=== PATIENT | female | born 1930 | race African-American/Black ===

== ENCOUNTER 2016-04-14 20:11 | Inpatient (IN) | payer MEDICARE, BC ==
[~2016-04-14 20:11] MED LIST: ACET-2247 PO; BENA20 PO; HYDR25TA PO; LEVO100 PO; METO-325 PO
[2016-04-14 20:35] VITALS: BP 149/88
[2016-04-14] MEDS ORDERED: INFLUENZA VIRUS VACCINE QVS 2016-17 (3YR+)/PF 60 MCG/0.5 ML SYRINGE IM ONE (21:15)
[2016-04-14] MEDS ORDERED: PNEUMOCOCCAL VACCINE POLYVALENT 0.5 ML VIAL [PPSV23] IM ONE (21:15)
[2016-04-14] MEDS ORDERED: MAGNESIUM HYDROXIDE SUSPENSION 30 ML UDCUP PO PRN (21:30)
[2016-04-14] MEDS ORDERED: IPRATROPIUM BROMIDE 0.5 MG/2.5 ML NEB SOLUTION NEB PRN (21:30)
[2016-04-14] MEDS ORDERED: ACETAMINOPHEN 325 MG TABLET PO PRN (21:30)
[2016-04-14] MEDS ORDERED: ONDANSETRON HCL 4 MG/2 ML VIAL IVP PRN (21:30)
[2016-04-14] MEDS ORDERED: ZOLPIDEM TARTRATE 5 MG TABLET PO PRN (21:30)
[2016-04-14] MEDS ORDERED: ALBUTEROL SULFATE 2.5 MG/0.5 ML NEB SOLUTION NEB PRN (21:30)
[2016-04-14] MEDS ORDERED: 0.9% SODIUM CHLORIDE 10 ML SYRINGE IVP PRN (23:15)
[2016-04-15] VITALS (7 sets, daily range): BP systolic 139–150; BP diastolic 77–89
[2016-04-15 05:55] LABS: APPEARANCE,URINE CLEAR (CLEAR); GLUCOSE, URINE (UA) NEGATIVE (NEGATIVE); KETONES,URINE NEGATIVE (NEGATIVE); OCCULT BLOOD,URINE SMALL (NEGATIVE); PH,URINE 7.5 (5.0-8.0); PROTEIN,URINE NEGATIVE (NEGATIVE)
[2016-04-15 05:56] LABS: ADD UA MICROSCOPIC YES; LEUKOCYTE ESTERASE ,URINE SMALL (NEGATIVE)
[2016-04-15 05:58] LABS: SQUAMOUS EPITHELIAL CELL,UR Moderate /LPF (None Seen)
[2016-04-15] MEDS: LEVOTHYROXINE SODIUM 100 MCG TABLET PO SCH (06:04)
[2016-04-15 07:38] LABS: BASOPHILS # (AUTO) 0.02 K/uL (0.00-0.20); BASOPHILS % (AUTO) 0.6 % (0.0-2.0); EOSINOPHILS # (AUTO) 0.06 K/uL (0.00-0.70); EOSINOPHILS % (AUTO) 1.44 % (1.0-6.0); HEMATOCRIT 32.7 % (36-46); HEMOGLOBIN 11.2 g/dL (12.0-16.0); LYMPHOCYTES # (AUTO) 0.8 K/uL (1.0-4.8); LYMPHOCYTES % (AUTO) 20.4 % (22.0-44.0); MEAN CORPUSCULAR HEMOGLOBIN 31.9 pg (26.0-34.0); MEAN CORPUSCULAR HGB CONC 34.3 G/dL (31.0-37.0); MEAN CORPUSCULAR VOLUME 93 fL (80-100); MONOCYTES # (AUTO) 0.3 K/uL (0.1-1.0); MONOCYTES % (AUTO) 7.9 % (2.0-9.0); NEUTROPHILS # (AUTO) 2.8 K/uL (1.8-7.7); NEUTROPHILS % (AUTO) 69.7 % (40.0-70.0); PLATELET COUNT (AUTO) 197 K/uL (150-450); RED BLOOD CELL COUNT(AUTO) 3.52 MIL/uL (4.00-5.20); RED CELL DISTRIBUTION WIDTH 13.5 % (11.5-14.5)
[2016-04-15 07:48] LABS: INR 1.1 (0.9-1.1); PROTHROMBIN TIME 11.4 SEC (9.4-11.6)
[2016-04-15 08:36] LABS: HEMOGLOBIN A1C 5.2 % (4.5-6.2)
[2016-04-15 08:58] LABS: ALANINE AMINOTRANSFERASE 12 U/L (12-78); ALBUMIN 3.1 g/dL (3.4-5.0); ANION GAP 7 mmol/L (8-16); ASPARTATE AMINOTRANSFERASE 16 U/L (15-37); BILIRUBIN,TOTAL 1.3 mg/dL (0.1-1.0); CALCIUM, TOTAL 8.2 mg/dL (8.8-10.5); CARBON DIOXIDE 33 mmol/L (22-29); CHLORIDE 98 mmol/L (98-107); CHOL/HDL RATIO 1.7 (3.9-5.7); CREATINE KINASE MB 1.1 ng/mL (0-5); CREATINE KINASE, TOTAL 114 U/L (26-192); CREATININE 0.53 mg/dL (0.60-1.30); GLOMERULAR FILTR. RATE CALC > 60 mL/min (>60); POTASSIUM 3.7 mmol/L (3.5-5.1); SODIUM SERUM 138 mmol/L (136-145); THYROID STIMULATING HORMONE 3.15 uIU/mL (0.36-3.74); UREA NITROGEN, BLOOD 7 mg/dL (7-18)
[2016-04-15 09:15] LABS: ERYTHROCYTE SEDIMENTATION RATE 22 MM/HR (0-20)
[2016-04-15 09:19] LABS: URIC ACID 3.3 mg/dL (2.6-7.2)
[2016-04-15] MEDS: METOPROLOL SUCCINATE 50 MG ER TABLET PO SCH (09:57)
[2016-04-15] MEDS: PANTOPRAZOLE SODIUM 40 MG DR TABLET PO SCH (09:57)
[2016-04-15] MEDS: HEPARIN SODIUM,PORCINE 5,000 UNITS/ML VIAL SQ SCH ×2 (09:58→21:16)
[2016-04-15] MEDS ORDERED: SODIUM CHLORIDE 0.9% 250 ML IV ONE (12:32)
[2016-04-15] MEDS: CefTRIAXone 1 GM/DEXTROSE 50 ML IV SCH (12:42)
[2016-04-16 05:41] VITALS: BP 131/83
[2016-04-16] MEDS: LEVOTHYROXINE SODIUM 100 MCG TABLET PO SCH (06:18)
[2016-04-16 07:22] LABS: BASOPHILS % (AUTO) 0.7 % (0.0-2.0); EOSINOPHILS % (AUTO) 0.9 % (1.0-6.0); HEMOGLOBIN 10.3 g/dL (12.0-16.0); LYMPHOCYTES # (AUTO) 0.8 K/uL (1.0-4.8); LYMPHOCYTES % (AUTO) 26.2 % (22.0-44.0); MEAN CORPUSCULAR HEMOGLOBIN 31.2 pg (26.0-34.0); MEAN CORPUSCULAR HGB CONC 33.2 G/dL (31.0-37.0); MEAN CORPUSCULAR VOLUME 94 fL (80-100); MONOCYTES # (AUTO) 0.4 K/uL (0.1-1.0); MONOCYTES % (AUTO) 11.2 % (2.0-9.0); NEUTROPHILS # (AUTO) 1.9 K/uL (1.8-7.7); PLATELET COUNT (AUTO) 198 K/uL (150-450); RED BLOOD CELL COUNT(AUTO) 3.29 MIL/uL (4.00-5.20); RED CELL DISTRIBUTION WIDTH 13.8 % (11.5-14.5); WHITE BLOOD COUNT (AUTO) 3.2 K/uL (4.5-11.0)
[2016-04-16 07:33] VITALS: BP 145/89
[2016-04-16 07:34] LABS: ANION GAP 3 mmol/L (8-16); CALCIUM, TOTAL 8.1 mg/dL (8.8-10.5); CARBON DIOXIDE 33 mmol/L (22-29); CHLORIDE 100 mmol/L (98-107); CREATININE 0.61 mg/dL (0.60-1.30); GLOMERULAR FILTR. RATE CALC > 60 mL/min (>60); SODIUM SERUM 136 mmol/L (136-145); UREA NITROGEN, BLOOD 6 mg/dL (7-18)
[2016-04-16] MEDS: PANTOPRAZOLE SODIUM 40 MG DR TABLET PO SCH (08:27)
[2016-04-16] MEDS: FOLIC ACID 1 MG TABLET PO SCH (08:27)
[2016-04-16] MEDS: METOPROLOL SUCCINATE 50 MG ER TABLET PO SCH (08:27)
[2016-04-16] MEDS: HEPARIN SODIUM,PORCINE 5,000 UNITS/ML VIAL SQ SCH ×2 (08:28→20:50)
[2016-04-16] MEDS: CefTRIAXone 1 GM/DEXTROSE 50 ML IV SCH (10:26)
[2016-04-16] MEDS ORDERED: CYANOCOBALAMIN 1,000 MCG/ML VIAL IM ONE (11:15)
[2016-04-16 11:28] VITALS: BP 145/72
[2016-04-16] MEDS ORDERED: CloNIDine HCL 0.1 MG TABLET PO PRN (11:30)
[2016-04-16] MEDS ORDERED: POTASSIUM CHLORIDE 20 MEQ ER TABLET PO PRN ×2 (11:30)
[2016-04-16] MEDS ORDERED: POTASSIUM CHL 10 MEQ/WATER 50 ML IV PRN (11:30)
[2016-04-16 15:04] LABS: HEPATITIS Bs ANTIGEN SCREEN P Negative (Negative); HEPATITIS C AB SCREEN <0.1 s/co ratio (0.0-0.9)
[2016-04-16 16:10] VITALS: BP 145/78
[2016-04-16 19:18] VITALS: BP 121/70
[2016-04-16] MEDS ORDERED: MIRTAZAPINE 15 MG TABLET PO SCH (21:00)
[2016-04-16 23:20] VITALS: BP 131/82
[2016-04-17 04:27] VITALS: BP 139/92
[2016-04-17] MEDS: LEVOTHYROXINE SODIUM 100 MCG TABLET PO SCH (05:41)
[2016-04-17 07:20] VITALS: BP 143/83
[2016-04-17] MEDS: FOLIC ACID 1 MG TABLET PO SCH (08:37)
[2016-04-17] MEDS: PANTOPRAZOLE SODIUM 40 MG DR TABLET PO SCH (08:38)
[2016-04-17] MEDS: HEPARIN SODIUM,PORCINE 5,000 UNITS/ML VIAL SQ SCH (08:38)
[2016-04-17] MEDS ORDERED: METOPROLOL SUCCINATE 50 MG ER TABLET PO SCH (09:00)
[2016-04-17] MEDS ORDERED: CYANOCOBALAMIN 500 MCG TABLET PO SCH (09:00)
[2016-04-17 09:57] LABS: BASOPHILS % (AUTO) 0.6 % (0.0-2.0); EOSINOPHILS % (AUTO) 0.4 % (1.0-6.0); HEMATOCRIT 32.5 % (36-46); HEMOGLOBIN 10.6 g/dL (12.0-16.0); LYMPHOCYTES # (AUTO) 0.8 K/uL (1.0-4.8); LYMPHOCYTES % (AUTO) 21.3 % (22.0-44.0); MEAN CORPUSCULAR HEMOGLOBIN 30.8 pg (26.0-34.0); MEAN CORPUSCULAR HGB CONC 32.6 G/dL (31.0-37.0); MEAN CORPUSCULAR VOLUME 95 fL (80-100); MONOCYTES # (AUTO) 0.3 K/uL (0.1-1.0); MONOCYTES % (AUTO) 7.6 % (2.0-9.0); NEUTROPHILS # (AUTO) 2.6 K/uL (1.8-7.7); NEUTROPHILS % (AUTO) 70.1 % (40.0-70.0); PLATELET COUNT (AUTO) 220 K/uL (150-450); RED BLOOD CELL COUNT(AUTO) 3.43 MIL/uL (4.00-5.20); RED CELL DISTRIBUTION WIDTH 13.5 % (11.5-14.5); WHITE BLOOD COUNT (AUTO) 3.7 K/uL (4.5-11.0)
[2016-04-17 10:27] LABS: ANION GAP 7 mmol/L (8-16); CALCIUM, TOTAL 8.1 mg/dL (8.8-10.5); CARBON DIOXIDE 31 mmol/L (22-29); CHLORIDE 100 mmol/L (98-107); CREATININE 0.67 mg/dL (0.60-1.30); GLOMERULAR FILTR. RATE CALC > 60 mL/min (>60); POTASSIUM 3.2 mmol/L (3.5-5.1); SODIUM SERUM 138 mmol/L (136-145); UREA NITROGEN, BLOOD 8 mg/dL (7-18)
[2016-04-17] MEDS: CefTRIAXone 1 GM/DEXTROSE 50 ML IV SCH (10:45)
[2016-04-17 11:16] VITALS: BP 140/79
[2016-04-17] MEDS ORDERED: LEVO500 PO (11:41)
[2016-04-17] MEDS ORDERED: MIRT15 PO (11:42)
[2016-04-17] MEDS ORDERED: FOLI1 PO (11:44)
[2016-04-17] MEDS ORDERED: CYAN500 PO (11:44)
== END 2016-04-17 12:05 | disposition home health service (06) | DRG 565 ==
LOC: 6N 20:25
PROVIDERS: ADMIT Internal Medicine Geriatric Medicine; ATTEND Internal Medicine Geriatric Medicine
PROC: 0S9D3ZZ Drainage of Left Knee Joint, Percutaneous Approach (ICD-10-PCS; principal; 2016-04-16)
DX: M25.462 Effusion, left knee (principal); N39.0 Urinary tract infection, site not specified; Z68.1 Body mass index [BMI] 19.9 or less, adult; E44.0 Moderate protein-calorie malnutrition; M17.12 Unilateral primary osteoarthritis, left knee; R13.10 Dysphagia, unspecified; R62.7 Adult failure to thrive; D64.9 Anemia, unspecified; E03.9 Hypothyroidism, unspecified; F03.90 Unspecified dementia, unspecified severity, without behavioral disturbance, psychotic disturbance, mood disturbance, and anxiety; F25.9 Schizoaffective disorder, unspecified; E87.6 Hypokalemia; D72.819 Decreased white blood cell count, unspecified; R63.0 Anorexia; I10 Essential (primary) hypertension; Z66 Do not resuscitate; Z95.0 Presence of cardiac pacemaker; Z98.49 Cataract extraction status, unspecified eye; Z98.890 Other specified postprocedural states; Z79.899 Other long term (current) drug therapy; Z28.21 Immunization not carried out because of patient refusal; Z80.1 Family history of malignant neoplasm of trachea, bronchus and lung
CPT/HCPCS: 70450; 80074; 82306; 82607; 82746; 83036; 83735; 84132; 84439; 84443; 84550; 85651; 86140; 86592; 92610; 93005; 93306; 97161; J0696; J1644; J3420; J7050

== ENCOUNTER 2016-05-20 12:00 | Emergency (ER) | payer MEDICARE, BC ==
[~2016-05-20] VITALS: Ht 175.3 cm; Wt 54.5 kg
[~2016-05-20 12:00] MED LIST changes: -ACET-2247 PO; -BENA20 PO; +CYAN500 PO; +FOLI1 PO; -HYDR25TA PO; +LEVO500 PO; -METO-325 PO; +MIRT15 PO
[2016-05-20] MEDS ORDERED: KETOROLAC TROMETHAMINE 60 MG/2 ML VIAL IM ONE (15:45)
[2016-05-20 16:30] VITALS: BP 129/78
== END 2016-05-20 16:49 | disposition home or self-care (01) ==
LOC: EMS 12:02
DX: S46.912A Strain of unspecified muscle, fascia and tendon at shoulder and upper arm level, left arm, initial encounter (principal); I11.9 Hypertensive heart disease without heart failure; Z95.0 Presence of cardiac pacemaker; X58.XXXA Exposure to other specified factors, initial encounter; Y93.89 Activity, other specified; Y92.89 Other specified places as the place of occurrence of the external cause; Y99.8 Other external cause status
CPT/HCPCS: 96372; 99283; J1885

== ENCOUNTER 2016-06-18 02:05 | Inpatient (IN) | payer MEDICARE, BC ==
[~2016-06-18] VITALS: Ht 175.3 cm; Wt 61.7 kg
[~2016-06-18 02:05] MED LIST changes: -LEVO500 PO
[2016-06-18] MEDS ORDERED: ACETAMINOPHEN 325 MG TABLET PO ONE (06:15)
[2016-06-18] MEDS ORDERED: PERTUSS(ACELL),DIPH,TET VAC/PF 0.5 ML VIAL IM ONE (06:15)
[2016-06-18 06:35] LABS: BASOPHILS # (AUTO) 0.01 K/uL (0.00-0.20); BASOPHILS % (AUTO) 0.3 % (0.0-2.0); EOSINOPHILS # (AUTO) 0.02 K/uL (0.00-0.70); EOSINOPHILS % (AUTO) 0.36 % (1.0-6.0); HEMATOCRIT 34.1 % (36-46); HEMOGLOBIN 11.2 g/dL (12.0-16.0); LYMPHOCYTES # (AUTO) 0.8 K/uL (1.0-4.8); LYMPHOCYTES % (AUTO) 13.3 % (22.0-44.0); MEAN CORPUSCULAR HGB CONC 32.8 G/dL (31.0-37.0); MEAN CORPUSCULAR VOLUME 94 fL (80-100); MONOCYTES # (AUTO) 0.5 K/uL (0.1-1.0); MONOCYTES % (AUTO) 8.5 % (2.0-9.0); NEUTROPHILS # (AUTO) 4.5 K/uL (1.8-7.7); NEUTROPHILS % (AUTO) 77.7 % (40.0-70.0); PLATELET COUNT (AUTO) 297 K/uL (150-450); RED BLOOD CELL COUNT(AUTO) 3.62 MIL/uL (4.00-5.20); RED CELL DISTRIBUTION WIDTH 13.9 % (11.5-14.5); WHITE BLOOD COUNT (AUTO) 5.8 K/uL (4.5-11.0)
[2016-06-18 06:49] LABS: ALBUMIN 2.8 g/dL (3.4-5.0); ANION GAP 4 mmol/L (8-16); ASPARTATE AMINOTRANSFERASE 22 U/L (15-37); BILIRUBIN,TOTAL 0.6 mg/dL (0.1-1.0); CALCIUM, TOTAL 8.3 mg/dL (8.8-10.5); CARBON DIOXIDE 35 mmol/L (22-29); CHLORIDE 98 mmol/L (98-107); CREATININE 0.61 mg/dL (0.60-1.30); GLOMERULAR FILTR. RATE CALC > 60 mL/min (>60); SODIUM SERUM 137 mmol/L (136-145); TOTAL PROTEIN, SERUM 6.8 g/dL (6.4-8.2); UREA NITROGEN, BLOOD 10 mg/dL (7-18)
[2016-06-18 06:53] LABS: POTASSIUM 2.8 mmol/L (3.5-5.1)
[2016-06-18 07:03] LABS: ALANINE AMINOTRANSFERASE 18 U/L (12-78)
[2016-06-18] MEDS ORDERED: ACETAMINOPHEN 325 MG TABLET PO PRN ×2 (07:30→12:30)
[2016-06-18] MEDS ORDERED: POTASSIUM CHLORIDE 20 MEQ ER TABLET PO ONE (07:30)
[2016-06-18] MEDS ORDERED: ONDANSETRON HCL 4 MG/2 ML VIAL IVP PRN ×2 (07:30→12:30)
[2016-06-18 10:12] VITALS: BP 155/93
[2016-06-18 12:12] VITALS: BP 136/76
[2016-06-18] MEDS ORDERED: BISACODYL 10 MG RECTAL RECTAL SUPPOSITORY PR PRN (12:30)
[2016-06-18] MEDS ORDERED: MORPHINE SULFATE 2 MG/ML SYRINGE IVP PRN (12:30)
[2016-06-18] MEDS ORDERED: POTASSIUM CHL 10 MEQ/WATER 50 ML IV PRN (12:30)
[2016-06-18] MEDS ORDERED: ZOLPIDEM TARTRATE 5 MG TABLET PO PRN (12:30)
[2016-06-18] MEDS ORDERED: POTASSIUM CHL 20 MEQ/0.45% NS 1,000 ML IV ONE (12:30)
[2016-06-18] MEDS ORDERED: POTASSIUM CHLORIDE 20 MEQ ER TABLET PO PRN (12:30)
[2016-06-18] MEDS ORDERED: MAGNESIUM HYDROXIDE SUSPENSION 30 ML UDCUP PO PRN (12:30)
[2016-06-18] MEDS ORDERED: HYDROCODONE/ACETAMINOPHEN 5-325 MG TABLET PO PRN (12:30)
[2016-06-18 14:10] LABS: ANION GAP 5 mmol/L (8-16); CALCIUM, TOTAL 8.3 mg/dL (8.8-10.5); CARBON DIOXIDE 33 mmol/L (22-29); CHLORIDE 99 mmol/L (98-107); CREATININE 0.63 mg/dL (0.60-1.30); GLOMERULAR FILTR. RATE CALC > 60 mL/min (>60); POTASSIUM 3.1 mmol/L (3.5-5.1); SODIUM SERUM 137 mmol/L (136-145); UREA NITROGEN, BLOOD 11 mg/dL (7-18)
[2016-06-18] MEDS ORDERED: HEPARIN SODIUM,PORCINE 5,000 UNITS/ML VIAL SQ SCH (16:00)
[2016-06-18 16:20] VITALS: BP 152/93
[2016-06-18 16:21] VITALS: BP 152/93
[2016-06-18] MEDS: HEPARIN SODIUM,PORCINE 5,000 UNITS/ML VIAL SQ SCH ×2 (16:31→23:55)
[2016-06-18 19:00] VITALS: BP 133/73
[2016-06-18] MEDS: DOCUSATE SODIUM 100 MG CAPSULE PO SCH (20:39)
[2016-06-18 23:57] VITALS: BP 137/85
[2016-06-19] MEDS ORDERED: PNEUMOCOCCAL VACCINE POLYVALENT 0.5 ML VIAL [PPSV23] IM ONE (01:30)
[2016-06-19 04:52] VITALS: BP 137/91
[2016-06-19] MEDS: LEVOTHYROXINE SODIUM 100 MCG TABLET PO SCH (05:47)
[2016-06-19 07:25] VITALS: BP 137/98
[2016-06-19] MEDS: CYANOCOBALAMIN 500 MCG TABLET PO SCH (08:20)
[2016-06-19] MEDS: PANTOPRAZOLE SODIUM 40 MG DR TABLET PO SCH (08:20)
[2016-06-19] MEDS: DOCUSATE SODIUM 100 MG CAPSULE PO SCH ×2 (08:20→21:16)
[2016-06-19] MEDS: FOLIC ACID 1 MG TABLET PO SCH (08:20)
[2016-06-19] MEDS: HEPARIN SODIUM,PORCINE 5,000 UNITS/ML VIAL SQ SCH ×2 (08:26→16:45)
[2016-06-19 11:55] VITALS: BP 142/91
[2016-06-19] MEDS ORDERED: POTASSIUM CHL 20 MEQ/0.9% NS 1,000 ML IV ONE (13:15)
[2016-06-19 15:47] VITALS: BP 146/63
[2016-06-19 21:01] VITALS: BP 142/81
[2016-06-19 23:22] VITALS: BP 149/89
[2016-06-20] MEDS: HEPARIN SODIUM,PORCINE 5,000 UNITS/ML VIAL SQ SCH ×4 (00:24→23:36)
[2016-06-20] MEDS: LEVOTHYROXINE SODIUM 100 MCG TABLET PO SCH (05:15)
[2016-06-20 05:22] VITALS: BP 141/94
[2016-06-20 05:46] LABS: ANION GAP 6 mmol/L (8-16); CALCIUM, TOTAL 8.1 mg/dL (8.8-10.5); CARBON DIOXIDE 32 mmol/L (22-29); CHLORIDE 101 mmol/L (98-107); GLOMERULAR FILTR. RATE CALC > 60 mL/min (>60); POTASSIUM 3.6 mmol/L (3.5-5.1); SODIUM SERUM 139 mmol/L (136-145); UREA NITROGEN, BLOOD 8 mg/dL (7-18)
[2016-06-20 07:58] VITALS: BP 146/85
[2016-06-20] MEDS: DOCUSATE SODIUM 100 MG CAPSULE PO SCH ×2 (08:44→19:55)
[2016-06-20] MEDS: FOLIC ACID 1 MG TABLET PO SCH (08:44)
[2016-06-20] MEDS: CYANOCOBALAMIN 500 MCG TABLET PO SCH (08:44)
[2016-06-20] MEDS: PANTOPRAZOLE SODIUM 40 MG DR TABLET PO SCH (08:44)
[2016-06-20] MEDS ORDERED: AMLO2.5T PO (10:28)
[2016-06-20 11:36] VITALS: BP 144/99
[2016-06-20] MEDS: AmLODIPine BESYLATE 2.5 MG TABLET PO SCH (11:49)
[2016-06-20 16:51] VITALS: BP 143/85
[2016-06-20 19:37] VITALS: BP 125/64
[2016-06-20 20:35] LABS: APPEARANCE,URINE CLOUDY (CLEAR); GLUCOSE, URINE (UA) NEGATIVE (NEGATIVE); KETONES,URINE NEGATIVE (NEGATIVE); LEUKOCYTE ESTERASE ,URINE NEGATIVE (NEGATIVE); OCCULT BLOOD,URINE NEGATIVE (NEGATIVE); PH,URINE 7.5 (5.0-8.0); PROTEIN,URINE NEGATIVE (NEGATIVE)
[2016-06-20 20:38] LABS: RBC,URINE 0-2 /HPF (0-2); SQUAMOUS EPITHELIAL CELL,UR Moderate /LPF (None Seen)
[2016-06-21 00:01] VITALS: BP 156/100
[2016-06-21 05:01] VITALS: BP 139/95
[2016-06-21] MEDS: LEVOTHYROXINE SODIUM 100 MCG TABLET PO SCH (06:16)
[2016-06-21 06:59] LABS: ANION GAP 6 mmol/L (8-16); CALCIUM, TOTAL 8.1 mg/dL (8.8-10.5); CARBON DIOXIDE 32 mmol/L (22-29); CHLORIDE 96 mmol/L (98-107); CREATININE 0.62 mg/dL (0.60-1.30); GLOMERULAR FILTR. RATE CALC > 60 mL/min (>60); POTASSIUM 3.6 mmol/L (3.5-5.1); SODIUM SERUM 134 mmol/L (136-145); UREA NITROGEN, BLOOD 6 mg/dL (7-18)
[2016-06-21 07:15] VITALS: BP 143/83
[2016-06-21] MEDS: HEPARIN SODIUM,PORCINE 5,000 UNITS/ML VIAL SQ SCH (08:33)
[2016-06-21] MEDS: PANTOPRAZOLE SODIUM 40 MG DR TABLET PO SCH (08:35)
[2016-06-21] MEDS: CYANOCOBALAMIN 500 MCG TABLET PO SCH (08:35)
[2016-06-21] MEDS: AmLODIPine BESYLATE 2.5 MG TABLET PO SCH (08:35)
[2016-06-21] MEDS: DOCUSATE SODIUM 100 MG CAPSULE PO SCH (08:35)
[2016-06-21] MEDS: FOLIC ACID 1 MG TABLET PO SCH (08:36)
[2016-06-21 11:10] VITALS: BP 137/89
== END 2016-06-21 14:10 | DRG 640 ==
LOC: EMS 02:07 → AHU 08:42 → 6N 19:16
PROVIDERS: ADMIT Internal Medicine; ATTEND Internal Medicine
DX: E87.6 Hypokalemia (principal); G93.41 Metabolic encephalopathy; E43 Unspecified severe protein-calorie malnutrition; E87.1 Hypo-osmolality and hyponatremia; F03.90 Unspecified dementia, unspecified severity, without behavioral disturbance, psychotic disturbance, mood disturbance, and anxiety; E03.9 Hypothyroidism, unspecified; I10 Essential (primary) hypertension; M19.90 Unspecified osteoarthritis, unspecified site; R29.6 Repeated falls; S01.81XA Laceration without foreign body of other part of head, initial encounter; W19.XXXA Unspecified fall, initial encounter; M25.519 Pain in unspecified shoulder; I51.9 Heart disease, unspecified; Y93.89 Activity, other specified; Y92.89 Other specified places as the place of occurrence of the external cause; Z95.0 Presence of cardiac pacemaker; Y99.8 Other external cause status; Z79.899 Other long term (current) drug therapy; Z68.20 Body mass index [BMI] 20.0-20.9, adult
CPT/HCPCS: 70450; 83735; 84132; 90715; 93005; 97162; 97530; 99285; J1644; J3480

== ENCOUNTER 2016-08-12 12:54 | Emergency (ER) | payer MEDICARE, BC ==
[~2016-08-12] VITALS: Ht 175.3 cm; Wt 57.7 kg
[~2016-08-12 12:54] MED LIST changes: +AMLO2.5T PO
[2016-08-12 13:33] LABS: BASOPHILS # (AUTO) 0.02 K/uL (0.00-0.20); BASOPHILS % (AUTO) 0.7 % (0.0-2.0); EOSINOPHILS # (AUTO) 0.07 K/uL (0.00-0.70); HEMATOCRIT 30.3 % (36-46); HEMOGLOBIN 10.3 g/dL (12.0-16.0); LYMPHOCYTES # (AUTO) 0.8 K/uL (1.0-4.8); LYMPHOCYTES % (AUTO) 23.8 % (22.0-44.0); MEAN CORPUSCULAR HEMOGLOBIN 29.8 pg (26.0-34.0); MEAN CORPUSCULAR HGB CONC 33.8 G/dL (31.0-37.0); MEAN CORPUSCULAR VOLUME 88 fL (80-100); MONOCYTES # (AUTO) 0.3 K/uL (0.1-1.0); MONOCYTES % (AUTO) 7.7 % (2.0-9.0); NEUTROPHILS # (AUTO) 2.3 K/uL (1.8-7.7); NEUTROPHILS % (AUTO) 65.8 % (40.0-70.0); PLATELET COUNT (AUTO) 220 K/uL (150-450); RED BLOOD CELL COUNT(AUTO) 3.45 MIL/uL (4.00-5.20); WHITE BLOOD COUNT (AUTO) 3.4 K/uL (4.5-11.0)
[2016-08-12 13:41] LABS: ANION GAP 8 mmol/L (8-16); CALCIUM, TOTAL 8.5 mg/dL (8.8-10.5); CARBON DIOXIDE 32 mmol/L (22-29); CHLORIDE 102 mmol/L (98-107); CREATININE 0.54 mg/dL (0.60-1.30); GLOMERULAR FILTR. RATE CALC > 60 mL/min (>60); POTASSIUM 3.1 mmol/L (3.5-5.1); SODIUM SERUM 142 mmol/L (136-145); UREA NITROGEN, BLOOD 14 mg/dL (7-18)
[2016-08-12 13:47] LABS: ALANINE AMINOTRANSFERASE 16 U/L (12-78); ASPARTATE AMINOTRANSFERASE 20 U/L (15-37); BILIRUBIN,TOTAL 0.7 mg/dL (0.1-1.0); INR 1.1 (0.9-1.1); PROTHROMBIN TIME 11.7 SEC (9.4-11.6); TOTAL PROTEIN, SERUM 7.3 g/dL (6.4-8.2)
[2016-08-12 16:40] VITALS: BP 144/101
== END 2016-08-12 17:32 | disposition home or self-care (01) ==
LOC: EMS 12:55
DX: M79.89 Other specified soft tissue disorders (principal); R79.89 Other specified abnormal findings of blood chemistry; I11.9 Hypertensive heart disease without heart failure; E03.9 Hypothyroidism, unspecified; Z95.0 Presence of cardiac pacemaker
CPT/HCPCS: 85379; 93306; 93971; 99285

== ENCOUNTER 2016-09-09 20:36 | Emergency (ER) | payer MEDICARE, BC ==
[~2016-09-09] VITALS: Ht 176.5 cm; Wt 62.3 kg
[2016-09-09 21:30] LABS: BASOPHILS # (AUTO) 0.02 K/uL (0.00-0.20); BASOPHILS % (AUTO) 0.9 % (0.0-2.0); EOSINOPHILS # (AUTO) 0.04 K/uL (0.00-0.70); EOSINOPHILS % (AUTO) 1.33 % (1.0-6.0); HEMATOCRIT 32.6 % (36-46); HEMOGLOBIN 10.7 g/dL (12.0-16.0); LYMPHOCYTES % (AUTO) 35.2 % (22.0-44.0); MEAN CORPUSCULAR HEMOGLOBIN 29.2 pg (26.0-34.0); MEAN CORPUSCULAR HGB CONC 32.7 G/dL (31.0-37.0); MEAN CORPUSCULAR VOLUME 89 fL (80-100); MONOCYTES # (AUTO) 0.4 K/uL (0.1-1.0); MONOCYTES % (AUTO) 12.1 % (2.0-9.0); NEUTROPHILS # (AUTO) 1.5 K/uL (1.8-7.7); NEUTROPHILS % (AUTO) 50.5 % (40.0-70.0); PLATELET COUNT (AUTO) 194 K/uL (150-450); RED BLOOD CELL COUNT(AUTO) 3.65 MIL/uL (4.00-5.20); RED CELL DISTRIBUTION WIDTH 17.1 % (11.5-14.5); WHITE BLOOD COUNT (AUTO) 2.9 K/uL (4.5-11.0)
[2016-09-09 21:39] LABS: ANION GAP 7 mmol/L (8-16); CARBON DIOXIDE 30 mmol/L (22-29); CHLORIDE 99 mmol/L (98-107); CREATININE 0.64 mg/dL (0.60-1.30); GLOMERULAR FILTR. RATE CALC > 60 mL/min (>60); POTASSIUM 3.6 mmol/L (3.5-5.1); SODIUM SERUM 136 mmol/L (136-145); UREA NITROGEN, BLOOD 10 mg/dL (7-18)
[2016-09-09 21:43] LABS: INR 1.1 (0.9-1.1); PROTHROMBIN TIME 11.9 SEC (9.4-11.6)
[2016-09-09 21:53] LABS: B-TYPE NATRIURETIC PEPTIDE 81 pg/mL (0-100)
[2016-09-09 22:00] LABS: RBC MORPHOLOGY COMMENT ABNORMAL RBC MORPH
[2016-09-09 22:03] LABS: ALANINE AMINOTRANSFERASE 22 U/L (12-78); ALBUMIN 3.1 g/dL (3.4-5.0); ASPARTATE AMINOTRANSFERASE 25 U/L (15-37); BILIRUBIN,TOTAL 0.7 mg/dL (0.1-1.0); CREATINE KINASE, TOTAL 84 U/L (26-192)
[2016-09-09 22:05] LABS: CREATINE KINASE MB < 0.5 ng/mL (0-5)
[2016-09-10 03:31] LABS: APPEARANCE,URINE CLEAR (CLEAR); GLUCOSE, URINE (UA) NEGATIVE (NEGATIVE); KETONES,URINE NEGATIVE (NEGATIVE); LEUKOCYTE ESTERASE ,URINE NEGATIVE (NEGATIVE); OCCULT BLOOD,URINE TRACE (NEGATIVE); PH,URINE 7.5 (5.0-8.0); PROTEIN,URINE NEGATIVE (NEGATIVE)
[2016-09-10 03:34] LABS: ADD UA MICROSCOPIC YES
[2016-09-10 03:41] LABS: RBC,URINE 0-2 /HPF (0-2); SQUAMOUS EPITHELIAL CELL,UR Rare /LPF (None Seen); WBC,URINE None Seen /HPF (0-5)
[2016-09-10 06:53] VITALS: BP 149/88
== END 2016-09-10 06:53 | disposition home or self-care (01) ==
LOC: EMS 20:40
DX: J98.11 Atelectasis (principal); I71.2 Thoracic aortic aneurysm, without rupture; I11.9 Hypertensive heart disease without heart failure; E03.9 Hypothyroidism, unspecified; Z95.0 Presence of cardiac pacemaker
CPT/HCPCS: 71260; 85379; 93005; 99285

== ENCOUNTER 2018-03-25 20:02 | Inpatient (IN) | payer OTHER, BC ==
[~2018-03-25] VITALS: Ht 175.3 cm; Wt 63.6 kg
[~2018-03-25 20:02] MED LIST changes: -AMLO2.5T PO; +AMLO2.5T4 PO
[2018-03-25 20:39] LABS: BASOPHILS % (AUTO) 0.6 % (0.0-2.0); EOSINOPHILS % (AUTO) 1.4 % (1.0-6.0); HEMATOCRIT 26.5 % (36-46); HEMOGLOBIN 8.9 g/dL (12.0-16.0); LYMPHOCYTES # (AUTO) 0.8 K/uL (1.0-4.8); LYMPHOCYTES % (AUTO) 15.8 % (22.0-44.0); MEAN CORPUSCULAR HEMOGLOBIN 30.4 pg (26.0-34.0); MEAN CORPUSCULAR HGB CONC 33.4 G/dL (31.0-37.0); MEAN CORPUSCULAR VOLUME 91 fL (80-100); MONOCYTES # (AUTO) 0.3 K/uL (0.1-1.0); MONOCYTES % (AUTO) 6.7 % (2.0-9.0); NEUTROPHILS # (AUTO) 3.7 K/uL (1.8-7.7); NEUTROPHILS % (AUTO) 75.5 % (40.0-70.0); PLATELET COUNT (AUTO) 128 K/uL (150-450); RED BLOOD CELL COUNT(AUTO) 2.92 MIL/uL (4.00-5.20); RED CELL DISTRIBUTION WIDTH 14.5 % (11.5-14.5)
[2018-03-25 20:51] LABS: CALCIUM, TOTAL 8.2 mg/dL (8.8-10.5); CREATININE 1.18 mg/dL (0.60-1.30); POTASSIUM 3.6 mmol/L (3.5-5.1)
[2018-03-25 20:57] LABS: ALBUMIN 2.9 g/dL (3.4-5.0); BILIRUBIN,TOTAL 0.3 mg/dL (0.1-1.0); TOTAL PROTEIN, SERUM 5.8 g/dL (6.4-8.2)
[2018-03-25 20:58] LABS: INR 1.1 (0.9-1.1); PROTHROMBIN TIME 11.8 SEC (9.4-11.6)
[2018-03-25] MEDS ORDERED: 0.9% SODIUM CHLORIDE 10 ML SYRINGE IVP PRN (22:30)
[2018-03-25] MEDS ORDERED: ONDANSETRON HCL 4 MG/2 ML VIAL IVP PRN (22:30)
[2018-03-25] MEDS ORDERED: ACETAMINOPHEN 325 MG TABLET PO PRN (22:30)
[2018-03-25] MEDS: PANTOPRAZOLE SODIUM 80 MG in SODIUM CHLORIDE 0.9% 100 ML IV SCH ×2 (22:30→23:10)
[2018-03-25] MEDS ORDERED: SODIUM CHLORIDE 0.9% 1,000 ML IV ONE (22:30)
[2018-03-25 23:55] VITALS: BP 104/56
[2018-03-26] VITALS (24 sets, daily range): BP systolic 72–127; BP diastolic 37–79
[2018-03-26] MEDS ORDERED: SODIUM CHLORIDE 0.9% 500 ML IV ONE ×2 (00:18→08:09)
[2018-03-26] MEDS ORDERED: PNEUMOCOCCAL VACCINE POLYVALENT 0.5 ML VIAL [PPSV23] IM ONE (01:30)
[2018-03-26 06:34] LABS: HEMATOCRIT 21.9 % (36-46); HEMOGLOBIN 7.4 g/dL (12.0-16.0); MEAN CORPUSCULAR HGB CONC 33.6 G/dL (31.0-37.0); MEAN CORPUSCULAR VOLUME 92 fL (80-100); PLATELET COUNT (AUTO) 98 K/uL (150-450); RED BLOOD CELL COUNT(AUTO) 2.38 MIL/uL (4.00-5.20); RED CELL DISTRIBUTION WIDTH 14.3 % (11.5-14.5)
[2018-03-26] MEDS ORDERED: ALBUTEROL SULFATE 2.5 MG/0.5 ML NEB SOLUTION NEB PRN (07:45)
[2018-03-26] MEDS ORDERED: ACETAMINOPHEN 325 MG TABLET PO PRN (07:45)
[2018-03-26 08:17] LABS: BASOPHILS % (AUTO) 0.4 % (0.0-2.0); EOSINOPHILS % (AUTO) 0 % (1.0-6.0); LYMPHOCYTES # (AUTO) 0.5 K/uL (1.0-4.8); LYMPHOCYTES % (AUTO) 6.7 % (22.0-44.0); MEAN CORPUSCULAR HEMOGLOBIN 31.3 pg (26.0-34.0); MEAN CORPUSCULAR HGB CONC 33.8 G/dL (31.0-37.0); MEAN CORPUSCULAR VOLUME 93 fL (80-100); MONOCYTES # (AUTO) 0.6 K/uL (0.1-1.0); MONOCYTES % (AUTO) 7.5 % (2.0-9.0); NEUTROPHILS # (AUTO) 6.8 K/uL (1.8-7.7); PLATELET COUNT (AUTO) 91 K/uL (150-450); RED CELL DISTRIBUTION WIDTH 14.4 % (11.5-14.5)
[2018-03-26 08:26] LABS: HEMOGLOBIN 6.6 g/dL (12.0-16.0)
[2018-03-26 08:27] LABS: HEMATOCRIT 19.4 % (36-46); NEUTROPHILS % (AUTO) 85.4 % (40.0-70.0)
[2018-03-26 08:43] LABS: BAND NEUTROPHILS % (MANUAL) 1 % (0-5); EOSINOPHILS % (MANUAL) 1 % (1-6); LYMPHOCYTES % (MANUAL) 12 % (22-44); MONOCYTES % (MANUAL) 4 % (2-9); SEGMENTED NEUTROPHILS % 82 % (40-70)
[2018-03-26] MEDS ORDERED: PEG 3350/NA SULF,BICARB,CL/KCL 4000 ML SOLUTION PO ONE (09:00)
[2018-03-26] MEDS: DOCUSATE SODIUM 100 MG CAPSULE PO SCH (09:00)
[2018-03-26] MEDS ORDERED: SODIUM CHLORIDE 0.9% 1,000 ML IV ONE (09:03)
[2018-03-26] MEDS: PANTOPRAZOLE SODIUM 80 MG in SODIUM CHLORIDE 0.9% 100 ML IV SCH ×2 (10:51→20:34)
[2018-03-26 15:34] LABS: APPEARANCE,URINE CLOUDY (CLEAR); BILIRUBIN,URINE NEGATIVE (NEGATIVE); GLUCOSE, URINE (UA) NEGATIVE (NEGATIVE); KETONES,URINE NEGATIVE (NEGATIVE); LEUKOCYTE ESTERASE ,URINE SMALL (NEGATIVE); NITRATE,URINE NEGATIVE (NEGATIVE); OCCULT BLOOD,URINE LARGE (NEGATIVE); PH,URINE 5.5 (5.0-8.0); PROTEIN,URINE POS 1+ (NEGATIVE); UROBILINOGEN,URINE 0.2 mg/dL (<=1.0)
[2018-03-26 15:46] LABS: BACTERIA,URINE Many /HPF (None Seen); SQUAMOUS EPITHELIAL CELL,UR Many /LPF (None Seen)
[2018-03-26 15:54] LABS: HEMATOCRIT 25.8 % (36-46); HEMOGLOBIN 8.8 g/dL (12.0-16.0)
[2018-03-27] VITALS (23 sets, daily range): BP systolic 95–134; BP diastolic 54–97
[2018-03-27 00:43] LABS: HEMATOCRIT 23.5 % (36-46); HEMOGLOBIN 7.9 g/dL (12.0-16.0)
[2018-03-27] MEDS ORDERED: SODIUM CHLORIDE 0.9% 1,000 ML IV ONE (06:50)
[2018-03-27] MEDS: OXYGEN THERAPY IH SCH ×2 (08:00→20:00)
[2018-03-27 08:39] LABS: HEMATOCRIT 17.4 % (36-46)
[2018-03-27] MEDS: DOCUSATE SODIUM 100 MG CAPSULE PO SCH ×2 (09:00→20:51)
[2018-03-27] MEDS ORDERED: SODIUM CHLORIDE 0.9% 250 ML IV ONE ×2 (09:59→18:20)
[2018-03-27] MEDS ORDERED: PROPOFOL 1% 20 ML VIAL IVP ONE (12:00)
[2018-03-27] MEDS: SOD FERRIC GLUC COMPLX/SUCROSE 125 MG in SODIUM CHLORIDE 0.9% 100 ML IV SCH (14:05)
[2018-03-27 16:27] LABS: HEMATOCRIT 21.4 % (36-46); HEMOGLOBIN 7.2 g/dL (12.0-16.0)
[2018-03-27 16:41] LABS: ALANINE AMINOTRANSFERASE 10 U/L (12-78); ALBUMIN 2.2 g/dL (3.4-5.0); ALKALINE PHOSPHATASE 37 U/L (46-116); ANION GAP 10 mmol/L (8-16); ASPARTATE AMINOTRANSFERASE 16 U/L (15-37); BILIRUBIN,TOTAL 0.6 mg/dL (0.1-1.0); CALCIUM, TOTAL 7.2 mg/dL (8.8-10.5); CARBON DIOXIDE 26 mmol/L (22-29); CHLORIDE 113 mmol/L (98-107); CREATININE 0.78 mg/dL (0.60-1.30); GLUCOSE,RANDOM 154 mg/dL (70-110); SODIUM SERUM 149 mmol/L (136-145); TOTAL PROTEIN, SERUM 4.4 g/dL (6.4-8.2); UREA NITROGEN, BLOOD 20 mg/dL (7-18)
[2018-03-27 16:49] LABS: GLOMERULAR FILTR. RATE CALC > 60 mL/min (>60); POTASSIUM 2.4 mmol/L (3.5-5.1)
[2018-03-27] MEDS: POTASSIUM CHL 10 MEQ/WATER 50 ML IV PRN ×4 (18:39→23:51)
[2018-03-27] MEDS: PANTOPRAZOLE SODIUM 40 MG/VIAL IVP SCH (20:51)
[2018-03-27] MEDS ORDERED: SODIUM CHLORIDE 0.9% 100 ML ONE (22:20)
[2018-03-27] MEDS ORDERED: SODIUM CHLORIDE 0.9% 500 ML IV ONE (22:21)
[2018-03-28] VITALS (16 sets, daily range): BP systolic 118–157; BP diastolic 65–91
[2018-03-28 02:27] LABS: HEMOGLOBIN 7.1 g/dL (12.0-16.0)
[2018-03-28 02:32] LABS: HEMATOCRIT 20.6 % (36-46)
[2018-03-28] MEDS: POTASSIUM CHLORIDE 20 MEQ ER TABLET PO PRN ×2 (02:46→13:43)
[2018-03-28] MEDS: OXYGEN THERAPY IH SCH ×2 (08:00→20:00)
[2018-03-28] MEDS ORDERED: SODIUM CHLORIDE 0.9% 100 ML ONE (08:29)
[2018-03-28] MEDS: PANTOPRAZOLE SODIUM 40 MG/VIAL IVP SCH ×2 (08:33→21:46)
[2018-03-28] MEDS: DOCUSATE SODIUM 100 MG CAPSULE PO SCH ×2 (08:34→21:45)
[2018-03-28] MEDS: SOD FERRIC GLUC COMPLX/SUCROSE 125 MG in SODIUM CHLORIDE 0.9% 100 ML IV SCH (13:43)
[2018-03-28 19:11] LABS: HEMATOCRIT 24.7 % (36-46); HEMOGLOBIN 8.4 g/dL (12.0-16.0)
[2018-03-28 21:25] LABS: HEMATOCRIT 24.2 % (36-46); HEMOGLOBIN 8.3 g/dL (12.0-16.0)
[2018-03-29 04:01] VITALS: BP 149/74
[2018-03-29 07:27] VITALS: BP 152/94
[2018-03-29] MEDS: OXYGEN THERAPY IH SCH (08:00)
[2018-03-29] MEDS: PANTOPRAZOLE SODIUM 40 MG/VIAL IVP SCH (08:32)
[2018-03-29] MEDS: DOCUSATE SODIUM 100 MG CAPSULE PO SCH (08:32)
[2018-03-29 12:24] VITALS: BP 140/75
[2018-03-29 13:13] LABS: BASOPHILS % (AUTO) 0.4 % (0.0-2.0); EOSINOPHILS % (AUTO) 0.9 % (1.0-6.0); HEMOGLOBIN 7.3 g/dL (12.0-16.0); LYMPHOCYTES # (AUTO) 0.7 K/uL (1.0-4.8); LYMPHOCYTES % (AUTO) 9.8 % (22.0-44.0); MEAN CORPUSCULAR HEMOGLOBIN 31.1 pg (26.0-34.0); MEAN CORPUSCULAR HGB CONC 34.8 G/dL (31.0-37.0); MEAN CORPUSCULAR VOLUME 89 fL (80-100); MONOCYTES # (AUTO) 0.5 K/uL (0.1-1.0); NEUTROPHILS # (AUTO) 5.5 K/uL (1.8-7.7); NEUTROPHILS % (AUTO) 81.9 % (40.0-70.0); PLATELET COUNT (AUTO) 106 K/uL (150-450); RED BLOOD CELL COUNT(AUTO) 2.35 MIL/uL (4.00-5.20); RED CELL DISTRIBUTION WIDTH 15.1 % (11.5-14.5)
[2018-03-29 13:25] LABS: HEMATOCRIT 20.9 % (36-46)
[2018-03-29 13:30] LABS: INR 1.1 (0.9-1.1); PROTHROMBIN TIME 11.7 SEC (9.4-11.6)
[2018-03-29] MEDS: SOD FERRIC GLUC COMPLX/SUCROSE 125 MG in SODIUM CHLORIDE 0.9% 100 ML IV SCH (14:00)
[2018-03-29 15:56] VITALS: BP 146/85
[2018-03-29] MEDS ORDERED: CefTRIAXone 1 GM/DEXTROSE 50 ML IV SCH (16:00)
[2018-03-29] MEDS ORDERED: PANT40VI IV (17:41)
[2018-03-29] MEDS ORDERED: DSS100 PO (17:41)
[2018-03-29] MEDS ORDERED: CEFTR1IV IV (17:41)
[2018-03-29] MEDS ORDERED: SOD62.5V IV (17:43)
[2018-03-29 20:00] VITALS: BP 138/106
== END 2018-03-29 20:20 | disposition short-term general hospital (02) | DRG 377 ==
LOC: EMS 20:03 → 6N 22:24 → 5S 03-26 14:21
PROVIDERS: ADMIT Internal Medicine; ATTEND Internal Medicine
PROC: 30233N1 Transfusion of Nonautologous Red Blood Cells into Peripheral Vein, Percutaneous Approach (ICD-10-PCS; 2018-03-26)
PROC: 0DJ08ZZ Inspection of Upper Intestinal Tract, Via Natural or Artificial Opening Endoscopic (ICD-10-PCS; principal; 2018-03-26 09:00)
PROC: 0DJD8ZZ Inspection of Lower Intestinal Tract, Via Natural or Artificial Opening Endoscopic (ICD-10-PCS; 2018-03-27)
DX: K57.31 Diverticulosis of large intestine without perforation or abscess with bleeding (principal); E43 Unspecified severe protein-calorie malnutrition; N39.0 Urinary tract infection, site not specified; I95.9 Hypotension, unspecified; R53.81 Other malaise; D64.9 Anemia, unspecified; K62.5 Hemorrhage of anus and rectum; Z79.899 Other long term (current) drug therapy; E03.9 Hypothyroidism, unspecified; F03.90 Unspecified dementia, unspecified severity, without behavioral disturbance, psychotic disturbance, mood disturbance, and anxiety; I10 Essential (primary) hypertension; I25.10 Atherosclerotic heart disease of native coronary artery without angina pectoris; R29.6 Repeated falls; Z82.49 Family history of ischemic heart disease and other diseases of the circulatory system; Z95.0 Presence of cardiac pacemaker; Z68.20 Body mass index [BMI] 20.0-20.9, adult
CPT/HCPCS: 36430; 78278; 84132; 85007; 85014; 85018; 86850; 86900; 86901; 86920; 87081; 87086; 93005; 93306; 96365; 99291; C9113; G0378; J0696; J2704; J2916; J3480; J7030; J7040; J7050; P9016